=== PATIENT | male | born 2000 | race Caucasian/White ===

== ENCOUNTER 2022-05-28 06:00 | Emergency (ER) | payer MEDICAID ==
[2022-05-28] MEDS ORDERED: Sodium Chloride 0.9% 1,000 ML IV ONE (06:11)
[2022-05-28 06:55] LABS: CARBON DIOXIDE,CO2 23.6 mmol/L (21.0-32.0); POTASSIUM,K 4.1 mmol/L (3.5-5.1)
[2022-05-28 06:58] LABS: CORONAVIRUS COVID-19 NAA NEGATIVE (NEGATIVE); INFLUENZA A NAA NEGATIVE (NEGATIVE); INFLUENZA B NAA NEGATIVE (NEGATIVE); RESPIRATORY SYNCYTIAL VIR NAA NEGATIVE (NEGATIVE)
== END 2022-05-29 07:11 | disposition home or self-care (01) ==
LOC: MW.ED 06:00
DX: E86.0 Dehydration (principal); B34.9 Viral infection, unspecified; Z20.822 Contact with and (suspected) exposure to COVID-19
CPT/HCPCS: 0241U; 36415; 80053; 83690; 85025; 96360; 99284; J7030; 99283